=== PATIENT | female | born 1995 | race Two or more races ===

== ENCOUNTER 2017-06-29 17:35 | Emergency (ER) | payer BC ==
[2017-06-29 18:11] VITALS: BP 110/73
--- NOTE | 2017-06-29 18:14 | ED ---
Throat Pain/Nasal Congestion - HPI Summary HPI Summary: 22 yr old female with onset of RLQ abdominal pain a couple of days ago, worse with walking, and stepping as this makes the pain intensify. She has had some mild dysuria. She is currently on her menses which began yesterday. She denies NVD. She is not able to give a urine sample at this time due to urinating before coming back to the room. - History of Current Complaint Chief Complaint: UCAbdominalPain - Allergies/Home Medications Allergies/Adverse Reactions: Allergies Allergy/AdvReac Type Severity Reaction Status Date / Time No Known Allergies Allergy Verified 06/29/17 18:11 Home Medications: Home Medications Norethindrone (NF) [Erin (NF)] 0.35 mg PO DAILY 06/29/17 [History Confirmed 06/29/17] PMH/Surg Hx/FS Hx/Imm Hx Endocrine/Hematology History: Denies: Hx Diabetes Cardiovascular History: Denies: Hx Hypertension, Hx Pacemaker/ICD Sensory History: Denies: Hx Hearing Aid Psychiatric History: Denies: Hx Panic Disorder - Surgical History Surgery Procedure, Year, and Place: WISDOM TEETH, PERMANENT BAR BOTTOM TEETH AFTER BRACES Infectious Disease History: No Infectious Disease History: Denies: Traveled Outside the [place] in Last 30 Days - Family History Known Family History: Positive: None - Social History Occupation: Student Lives: Dormitory/Roommates Alcohol Use: None Substance Use Type: Reports: None Smoking Status (MU): Never Smoked Tobacco Review of Systems Negative: Fever, Chills Positive: Abdominal Pain Positive: dysuria All Other Systems Reviewed And Are Negative: Yes Physical Exam Triage Information Reviewed: Yes Vital Signs On Initial Exam: Initial Vitals Temp Pulse Resp BP Pulse Ox 98 F 52 15 110/73 100 06/29/17 18:07 06/29/17 18:07 06/29/17 18:07 06/29/17 18:07 06/29/17 18:07 Vital Signs Reviewed: Yes Appearance: Positive: Well-Appearing, No Pain Distress Skin: Positive: Warm, Skin Color Reflects Adequate Perfusion Eyes: Positive: EOMI ENT: Positive: Pharynx normal Respiratory/Lung Sounds: Positive: Clear to Auscultation, Breath Sounds Present Cardiovascular: Positive: RRR. Negative: Murmur Abdomen Description: Positive: Other: - tender in RLQ. Negative: CVA Tenderness (R), CVA Tenderness (L) Musculoskeletal: Positive: Strength/ROM Intact Neurological: Positive: Sensory/Motor Intact, Alert, Oriented to Person Place, Time, CN Intact II-III Psychiatric: Positive: Normal - Landry Coma Scale Best Eye Response: 4 - Spontaneous Best Motor Response: 6 - Obeys Commands Best Verbal Response: 5 - Oriented Coma Scale Total: 15 Diagnostics - Vital Signs Vital Signs Temp Pulse Resp BP Pulse Ox 06/29/17 18:07 98 F 52 15 110/73 100 - Laboratory Lab Statement: Any lab studies that have been ordered have been reviewed, and results considered in the medical decision making process. EENT Course/Dx - Course Course Of Treatment: 22 yr old with RLQ tenderness. Sent to ER upon discharge from here for further abdominal pain work up. - Diagnoses Provider Diagnoses: Abdominal pain Discharge - Discharge Plan Condition: Good Disposition: HOME Patient Education Materials: Acute Abdominal Pain (ED) Referrals: No Primary Care Phys,NOPCP [Primary Care Provider] - Additional Instructions: GO to the ER upon discharge from her for further work up. YOu could have appendicitis and you need labs and possibly a CT scan of your abdomen this evening.
== END 2017-06-29 18:47 | disposition home or self-care (01) ==
LOC: UCCORT 17:35
DX: R10.31 Right lower quadrant pain (principal); R30.0 Dysuria
CPT/HCPCS: 99212; G0463